=== PATIENT | female | born 1940 | race Caucasian/White ===

== ENCOUNTER 2016-10-19 14:08 | Emergency (ER) | payer OTHER, MEDICARE, BC ==
[~2016-10-19] VITALS: Ht 152.4 cm; Wt 62.0 kg
[~2016-10-19 14:08] MED LIST: ATOR40TA49 PO; CITA20TA4 PO; METO50TA PO; OMEP20TA39 PO; TRAZ50TA4 PO
[2016-10-19 14:20] VITALS: BP 74/46; PULSE 68; RESP 16; TEMP 97.4; O2SAT 95
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
[2016-10-19] MEDS ORDERED: ASPI-110 PO (15:05)
[2016-10-19] MEDS ORDERED: OMEP20TA PO (15:05)
[2016-10-19] MEDS ORDERED: ZOLO50TA PO (15:05)
[2016-10-19] MEDS ORDERED: ATOR20TA15 PO (15:05)
[2016-10-19] MEDS ORDERED: METO50TA PO (15:05)
[2016-10-19 15:15] VITALS: BP_SYST 129; BP_SYST 84; BP_DIAS 59; BP_DIAS 64; PULSE 59; RESP 18; O2SAT 98
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
== END 2016-10-19 16:43 | disposition home or self-care (01) ==
LOC: PHED 14:08
DX: S00.33XA Contusion of nose, initial encounter (principal); S51.811A Laceration without foreign body of right forearm, initial encounter; I10 Essential (primary) hypertension; V43.52XA Car driver injured in collision with other type car in traffic accident, initial encounter; Y93.89 Activity, other specified; Y92.89 Other specified places as the place of occurrence of the external cause; Y99.8 Other external cause status
CPT/HCPCS: 70450; 72125

== ENCOUNTER → 2017-02-12 | Outpatient (CLI) | payer MEDICARE, BC ==
[~2017-02-12] MED LIST changes: +ASPI-110 PO; +ATOR20TA15 PO; -ATOR40TA49 PO; -CITA20TA4 PO; +OMEP20TA PO; -OMEP20TA39 PO; -TRAZ50TA4 PO; +ZOLO50TA PO
[2017-02-12 13:05] LABS: AUTOMATED NEUTROPHIL # 2.7 TH/MM3 (1.8-7.7); BASOPHIL % 0.9 % (0.0-2.0); EOSINOPHIL # 0.3 TH/MM3 (0-0.4); EOSINOPHIL % 5.9 % (0.0-4.0); HEMATOCRIT 39.6 % (35.0-46.0); HEMO FLAGS DIFF FINAL; LYMPH % 29.7 % (9.0-44.0); LYMPHOCYTE # 1.5 TH/MM3 (1.0-4.8); MEAN CELL VOLUME 93.2 FL (80.0-100.0); MEAN CORPUSCULAR HEMOGLOBIN 30.8 PG (27.0-34.0); MEAN CORPUSCULAR HGB CONC 33.1 % (32.0-36.0); MONO % 9.6 % (0.0-8.0); NEUT % 53.9 % (16.0-70.0); PLATELET COUNT 256 TH/MM3 (150-450); RED BLOOD COUNT 4.25 MIL/MM3 (4.00-5.30); RED CELL DISTRIBUTION WIDTH 14.3 % (11.6-17.2)
[2017-02-12 13:20] LABS: ANION GAP 4 MEQ/L (5-15); BICARBONATE 31.4 MEQ/L (21.0-32.0); BLOOD UREA NITROGEN 13 MG/DL (7-18); CHLORIDE 107 MEQ/L (98-107); GLOMERULAR FILTRATION RATE 65 ML/MIN (>89); GLUCOSE,FASTING 93 MG/DL (74-99); POTASSIUM 5.1 MEQ/L (3.5-5.1); SODIUM (NA) 142 MEQ/L (136-145)
[2017-02-12 13:31] LABS: ALKALINE PHOSPHATASE 68 U/L (45-117); ALT (GPT) 24 U/L (10-53); AST (GOT) 19 U/L (15-37); HDL CHOLESTEROL 91.2 MG/DL (40.0-60.0); LDL CHOLESTEROL 75 MG/DL (0-99); TOTAL BILIRUBIN ADULT 0.8 MG/DL (0.2-1.0)
== END ==
LOC: PLAB 09:47
PROVIDERS: ATTEND Family Medicine
DX: E78.2 Mixed hyperlipidemia (principal); I10 Essential (primary) hypertension; K21.9 Gastro-esophageal reflux disease without esophagitis; I73.9 Peripheral vascular disease, unspecified
CPT/HCPCS: 36415; 80053; 80061; 85025

== ENCOUNTER → 2017-05-19 | Outpatient (CLI) | payer MEDICARE, BC ==
[~2017-05-19] MED LIST changes: -ASPI-110 PO; +ASPI1TAB57 PO; -OMEP20TA PO; +OMEP20TA93 PO; +PERC5TAB12 PO; +TRAZ50TA12 PO
[2017-05-19 12:36] LABS: AUTOMATED NEUTROPHIL # 2.7 TH/MM3 (1.8-7.7); BASOPHIL % 0.7 % (0.0-2.0); EOSINOPHIL # 0.2 TH/MM3 (0-0.4); EOSINOPHIL % 4.3 % (0.0-4.0); HEMATOCRIT 38.1 % (35.0-46.0); HEMO FLAGS DIFF FINAL; LYMPH % 27.3 % (9.0-44.0); LYMPHOCYTE # 1.3 TH/MM3 (1.0-4.8); MEAN CORPUSCULAR HEMOGLOBIN 31.4 PG (27.0-34.0); MEAN CORPUSCULAR HGB CONC 33.7 % (32.0-36.0); MONO % 11.4 % (0.0-8.0); NEUT % 56.3 % (16.0-70.0); PLATELET COUNT 246 TH/MM3 (150-450); RED CELL DISTRIBUTION WIDTH 13.8 % (11.6-17.2); WHITE BLOOD COUNT 4.9 TH/MM3 (4.0-11.0)
[2017-05-19 12:47] LABS: PROTHROMBIN TIME - PATIENT 9.8 SEC (9.8-11.6)
[2017-05-19 12:49] LABS: BLOOD, URINE NEG (NEG); GLUCOSE,URINE NEG (NEG); KETONE, URINE NEG (NEG); MUCUS URINE FEW /lpf (OCC); NITRITE,URINE NEG (NEG); URINE COLOR LIGHT-YELLOW (YELLW/STRAW)
[2017-05-19 12:55] LABS: COMMENT (UR) CULTURE INDICATED; CULTURE IF INDICATED CULTURE INDICATED
[2017-05-19 13:02] LABS: ALT (GPT) 24 U/L (10-53); ANION GAP 4 MEQ/L (5-15); AST (GOT) 19 U/L (15-37); BICARBONATE 31.5 MEQ/L (21.0-32.0); BLOOD UREA NITROGEN 10 MG/DL (7-18); CHLORIDE 104 MEQ/L (98-107); GLOMERULAR FILTRATION RATE 78 ML/MIN (>89); GLUCOSE,FASTING 81 MG/DL (74-99); SODIUM (NA) 139 MEQ/L (136-145)
[2017-05-19 13:05] LABS: ALKALINE PHOSPHATASE 70 U/L (45-117); TOTAL BILIRUBIN ADULT 0.8 MG/DL (0.2-1.0)
--- NOTE | 2017-05-19 13:52 | RADRPT ---
EXAM DATE/TIME: 05/19/2017 12:57 [facility] COMPARISON: No previous studies available for comparison. INDICATIONS : Evaluate for pneumonia, pneumothorax, or comminicable disease. Pre op for common carotid bypass/ inte rnal carotid bypass on 05/21/2017. MEDICAL HISTORY : Hypertension. SURGICAL HISTORY : None. ENCOUNTER: Initial ACUITY: 1 day PAIN SCORE: 0/10 LOCATION: Bilateral chest FINDINGS: PA and lateral views of the chest demonstrate a normal-sized cardiac silhouette with calcification of the aorta. There is no effusion, consolidation, or pneumothorax. The bones and soft tissues demonstr ate no acute abnormality. CONCLUSION: No acute cardiopulmonary abnormality is identified. Ramez Marte MD on May 19, 2017 at 13:49 Board Certified Radiologist. This report was verified electronically.
--- NOTE | 2017-05-20 14:44 | EKG ---
Date Performed: 05/19/2017 Time Performed: 12:12:42 PTAGE: 77 years EKG: Sinus rhythm NORMAL ECG NO PREVIOUS TRACING DOCTOR: Veronica Melo Interpretating Date/Time 05/20/2017 14:40:33
== END ==
LOC: CPRE 11:44
PROVIDERS: ATTEND Surgery
DX: Z01.810 Encounter for preprocedural cardiovascular examination (principal); Z01.811 Encounter for preprocedural respiratory examination; Z01.812 Encounter for preprocedural laboratory examination; I71.9 Aortic aneurysm of unspecified site, without rupture; R82.99 Other abnormal findings in urine; B96.1 Klebsiella pneumoniae [K. pneumoniae] as the cause of diseases classified elsewhere
CPT/HCPCS: 36415; 71020; 80053; 81001; 85025; 85610; 86850; 86900; 86901; 87077; 87086; 87186; 93005

== ENCOUNTER 2017-05-21 05:41 | Inpatient (IN) | payer MEDICARE, BC ==
[~2017-05-21] VITALS: Ht 152.4 cm; Wt 68.0 kg
[~2017-05-21 05:41] MED LIST changes: -PERC5TAB12 PO
[2017-05-21] MEDS ORDERED: CHLORHEXIDINE GLUCONATE 2 % 1 PACK (2 CLOTHS) TOPICAL PRN (06:15)
[2017-05-21] MEDS ORDERED: LACTATED RINGER'S 1000 ML IV PRN (06:15)
[2017-05-21] MEDS ORDERED: POVIDONE IODINE 5% (ANTISEPSIS KIT) 4 APPLICATIONS EACH NARE PRN (06:15)
[2017-05-21] MEDS ORDERED: SODIUM CHLORID 0.9% 500 ML IV PRN (06:15)
[2017-05-21] MEDS ORDERED: METOPROLOL TARTRATE 25 MG TAB PO PRN (06:15)
[2017-05-21] MEDS ORDERED: ACETAMINOPHEN 1000 MG/100 ML 100 ML IV ONE (07:09)
[2017-05-21] MEDS ORDERED: NITROGLYCERIN INJ 5 ML ONE (07:10)
[2017-05-21] MEDS ORDERED: BUPIVACAINE HCL PF 0.5% 30 ML VIAL ONE (07:29)
[2017-05-21] MEDS ORDERED: HEPARIN SODIUM - IV 10,000 UNITS/10 ML VIAL ONE (07:29)
[2017-05-21] MEDS ORDERED: THROMBIN (TOPICAL) 20,000 UNIT SPRAY KIT ONE (07:29)
[2017-05-21] MEDS ORDERED: PROTAMINE SULFATE 50 MG/5 ML VIAL ONE (07:29)
[2017-05-21] MEDS ORDERED: HEPARIN-NS/PF INJ 500 ML ONE (07:29)
[2017-05-21] MEDS ORDERED: VANCOMYCIN HCL 1000 MG VIAL ONE (07:30)
--- NOTE | 2017-05-21 08:36 | PD.VS.PN ---
Pre-operative Note Pre-operative diagnosis: R carotid stenosis after CEA Planned procedure: R carotid bypass Interval History: PT is appropriately anxious but no other changes in health that would preclude OR Labs: Hct 38 plt 246 INR 1.0 cr 0.7 Blood: T&S EKG: NSR no ST changes Imaging: CXR negative CTA (04/15) reviewed Orders: NPO Vanc 1g IV OCTOR (PCN Allergy) Post-operative destination: [facility] Operative site marked: Yes Consent: Informed consent has been obtained from Natasha Moore. I have explained the procedure in detail and discussed the risks, benefits, and potential complications. All questions have been answered. Patient contact information: daughter [phone] Hong Vásquez MD May 21, 2017 08:35
[2017-05-21] MEDS ORDERED: SODIUM CHLOR 0.9% 250 ML INJ 250 ML IV ONE (10:15)
--- NOTE | 2017-05-21 11:21 | HHI.PR ---
cc: Shameka Goldman MD Immediate Post Op Note Procedure Date: May 21, 2017 Pre Op Diagnosis: RIGHT carotid stenosis after CEA Post Op Diagnosis: RIGHT carotid stenosis after CEA Surgeon: Hong Vásquez Blood Typer(s): Chanda Whyte Procedure: R CCA-ICA bypass Findings: distal CCA high grade stenosis replaced with 8mm PTFE Good Doppler signals ICA and ECA Additional Information: awoke neuro intact Complications: none Specimen(s) removed: none for pathology Estimated blood loss: 50mL Anesthesia: General Drains: None Fluids: 1300mL IVF Urinary Output (mLs): 100 Patient to: [facility] Patient Condition: Good Implant/Devices: SEE IMPLANT LOG (if applicable) Date/Time of Procedure: SEE SURGICAL CARE RECORD Hong Vásquez MD May 21, 2017 11:21
[2017-05-21] MEDS ORDERED: LACTULOSE SYRUP 20 GM/30 ML CUP PO PRN (11:30)
[2017-05-21] MEDS ORDERED: BISACODYL 10 MG SUPP RECTAL PRN (11:30)
[2017-05-21] MEDS ORDERED: SENNOSIDES 8.6 MG TAB PO PRN (11:30)
[2017-05-21] MEDS ORDERED: HYDROmorphone HCL 2 MG TAB PO PRN (11:30)
[2017-05-21] MEDS ORDERED: MAGNESIUM HYDROXIDE SUSP 30 ML CUP PO PRN (11:30)
[2017-05-21 11:51] VITALS: O2SAT 97
[2017-05-21] MEDS: hydrALAZINE HCL 20 MG/ML VIAL IV PUSH PRN ×2 (11:58→17:36)
[2017-05-21 12:00] VITALS: PULSE 73
[2017-05-21] MEDS: MORPHINE SULFATE 4 MG/ML INJ IV PUSH PRN ×2 (12:39→13:31)
[2017-05-21] MEDS ORDERED: PILL SPLITTER OTHER PRN (13:30)
[2017-05-21 15:00] VITALS: PULSE 90
--- NOTE | 2017-05-21 17:41 | PD.CONS ---
HPI Service Critical Care Medicine Consult Requested By Dr. Vásquez Reason for Consult S/P Right CEA Primary Care Physician Shameka Goldman MD History of Present Illness This is a 89-year-old female is found to have 90% occlusion right carotid artery and is S/P right CEA. Review of Systems ROS 12 point of systems negative with the exception of HPI Past Family Social History Allergies: Coded Allergies: Sulfa (Sulfonamide Antibiotics) (Verified Allergy, Severe, HIVES, 05/21/17) penicillin G (Verified Allergy, Severe, HIVES, 05/21/17) Active Ordered Medications see MAR Family History Unable to obtain patient finding of significant postoperative pain Social History Unable to obtain patient complaining of significant pain Physical Exam Vital Signs Vital Signs Date Time Temp Pulse Resp B/P (MAP) Pulse Ox O2 Delivery O2 Flow Rate FiO2 05/21/17 15:00 90 05/21/17 12:00 73 05/21/17 11:51 97 Nasal Cannula 4.00 05/21/17 08:28 97.9 72 20 112/72 (85) 95 Physical Exam GENERAL: This is a 77-year-old well-developed well-nourished female in moderate amount of distress secondary to complaints postoperative pain SKIN: Warm and dry. HEAD: Atraumatic. Normocephalic. EYES: Pupils equal and round. No scleral icterus. No injection or drainage. ENT: No nasal bleeding or discharge. Mucous membranes pink and moist. NECK: Trachea midline. No JVD. Right incision with dermabond C/D/I CARDIOVASCULAR: Normal rate, regular rhythm. RESPIRATORY: No accessory muscle use. Clear to auscultation. Breath sounds equal bilaterally. On nasal cannula 2 LPM GASTROINTESTINAL: Abdomen soft, non-tender, nondistended. No guarding. MUSCULOSKELETAL: Extremities without clubbing, cyanosis, or edema. No obvious deformities. NEUROLOGICAL: Awake and alert. RASS 0. No gross focal/sensory deficits. Follows commands in all 4 extremities. Septic Shock Reassessment Heart: Regular rate and rhythm Lungs: Clear Skin: Warm Peripheral Pulses: Bounding Right Radial Bounding Left Radial Bounding Left Popliteal Bounding Right Dorsalis Pedis Capillary Refill: Brisk Assessment and Plan Assessment and Plan This is a 77-year-old elderly female, status post right CEA. Assessment S/P Right CEA POD #0 Plan Plan by systems: Neurologic: Neurochecks per ICU protocol Add multimodal analgesia Ofirmev 1 g every 6 hours 24 hours Continue morphine, for breakthrough pain Respiratory: Incentive spirometry every 4 hours while awake Wean FiO2 . Patient currently on 2 L nasal cannula Duo nebs every 4 hours when necessary for wheezing Cardiovascular: Maintain MAP greater than 65 mmHg Telemetry normal sinus metoprolol ,atorvastatin, aspirin Renal: -- Strict I/Os FEN/GI: Heart healthy diet Bowel regimen Heme/ID: Monitor CBC Endocrine: Post monitoring per ICU protocol -- SSI Prophylaxis: GI Prophylaxis Famotidine DVT Prophylaxis -- SCDs Lovenox to begin 05/22 Lines: Right radial A-line, peripheral IVs 2 Dispo: Level 2 Code Status Full Discussed Condition With Dr. Vásquez and DEWATERING FILTERING SUPERVISOR at bedside Lori Perales MD May 21, 2017 17:40
[2017-05-21] MEDS: ACETAMINOPHEN 1000 MG/100 ML 100 ML IV SCH ×2 (18:23→23:51)
[2017-05-21 19:00] VITALS: BP 113/45; PULSE 89; RESP 18; TEMP 97.9; O2SAT 97
[2017-05-21] MEDS: DOCUSATE SODIUM 50 MG/SENNA 8.6 MG TAB PO SCH (20:53)
[2017-05-21] MEDS: FAMOTIDINE 20 MG TAB PO SCH (20:54)
[2017-05-21] MEDS ORDERED: traZODone HCL 50 MG TAB PO SCH (21:00)
[2017-05-21] MEDS ORDERED: ATORVASTATIN 40 MG TAB PO SCH (21:00)
[2017-05-21 21:53] VITALS: O2SAT 97
[2017-05-21 23:00] VITALS: BP_SYST 117; BP_SYST 121; BP_DIAS 41; BP_DIAS 67; PULSE 62; PULSE 68; RESP 16; TEMP 98.1; O2SAT 97
[2017-05-22 03:00] VITALS: BP 103/50; PULSE 62; PULSE 63; RESP 16; TEMP 98.3; O2SAT 98
[2017-05-22 04:07] LABS: HEMATOCRIT 32.7 % (35.0-46.0); MEAN CELL VOLUME 93.2 FL (80.0-100.0); MEAN CORPUSCULAR HEMOGLOBIN 31.1 PG (27.0-34.0); MEAN CORPUSCULAR HGB CONC 33.3 % (32.0-36.0); PLATELET COUNT 220 TH/MM3 (150-450); RED BLOOD COUNT 3.51 MIL/MM3 (4.00-5.30); RED CELL DISTRIBUTION WIDTH 13.8 % (11.6-17.2); REVIEW FLAG FINAL; WHITE BLOOD COUNT 7.7 TH/MM3 (4.0-11.0)
[2017-05-22 04:49] LABS: BICARBONATE 27.1 MEQ/L (21.0-32.0); POTASSIUM 4.3 MEQ/L (3.5-5.1)
[2017-05-22] MEDS: ACETAMINOPHEN 1000 MG/100 ML 100 ML IV SCH (05:40)
--- NOTE | 2017-05-22 06:27 | PD.VS.PN ---
Subjective POD #: 1 Procedure(s): R CCA-ICA bypass Subjective/Hospital Course neuro intact, NARANJO; looks great; does c/o sore neck Objective Vitals/I&O Date Time Temp Pulse Resp B/P (MAP) Pulse Ox O2 Delivery O2 Flow Rate FiO2 05/22/17 03:00 98.3 62 16 103/50 (67) 98 05/22/17 03:00 96 Nasal Cannula 2.00 05/22/17 03:00 63 05/22/17 01:01 16 05/21/17 23:00 05/21/17 23:00 97 Nasal Cannula 2.00 05/21/17 23:00 62 05/21/17 23:00 98.1 68 16 121/67 (85) 97 117/41 (66) 05/21/17 21:53 97 Nasal Cannula 2.00 05/21/17 19:00 95 Nasal Cannula 2.00 05/21/17 19:00 89 05/21/17 19:00 97.9 89 18 113/45 (67) 97 05/21/17 15:00 90 05/21/17 12:00 73 05/21/17 11:51 97 Nasal Cannula 4.00 05/21/17 08:28 97.9 72 20 112/72 (85) 95 05/22/17 05/22/17 05/22/17 07:00 15:00 23:00 Intake Total 1160 ml Output Total 1850 ml Balance -690 ml Exam: Neuro mild ecchymosis R neck CN intact Incisions: intact Laboratory Laboratory Tests Test 05/22/17 03:30 White Blood Count 7.7 Red Blood Count 3.51 Hemoglobin 10.9 Hematocrit 32.7 Mean Corpuscular Volume 93.2 Mean Corpuscular Hemoglobin 31.1 Mean Corpuscular Hemoglobin Concent 33.3 Red Cell Distribution Width 13.8 Platelet Count 220 Mean Platelet Volume 7.2 Blood Urea Nitrogen 10 Creatinine 0.62 Random Glucose 138 Calcium Level 8.0 Sodium Level 134 Potassium Level 4.3 Chloride Level 101 Carbon Dioxide Level 27.1 Anion Gap 6 Estimat Glomerular Filtration Rate 93 Assessment and Plan Plan POD#1 s/p R carotid replacement Looks great; neuro intact 1. D/C A-line 2. Normalize and d/c home this morning if alexy po and ambulates well Discharge Planning today Hong Vásquez MD May 22, 2017 06:27
--- NOTE | 2017-05-22 06:34 | MP ---
cc: HONG VÁSQUEZ MD DATE OF SURGERY 05/21/2017 PREOPERATIVE DIAGNOSIS Carotid artery stenosis after a carotid endarterectomy. POSTOPERATIVE DIAGNOSIS Carotid artery stenosis after a carotid endarterectomy. PROCEDURE Common carotid-internal carotid artery bypass with 8-mm PTFE. ATTENDING SURGEON Hong Vásquez MD DEBT RECOVERY OFFICER SURGEON Chanda Whyte ANESTHESIA General. INDICATIONS Mrs. Moore is a 77-year-old lady who 7 years ago had a right carotid endarterectomy. She had a CT scan done for other reasons and presented with a high-grade stenosis of her carotid artery repair. She is asymptomatic. After a long discussion was had with the patient and her daughter she was offered a carotid replacement. A thorough discussion was had about the risks and benefits. DESCRIPTION OF PROCEDURE Informed consent was obtained from the patient. She was taken to the operating room and placed supine on the operating room table and appropriate time-out was taken to insure the patient's identity, operative site and the planned procedure. The administration of 1 gram of vancomycin was initiated prior to the skin incision and will be discontinued after a single preoperative dose. Vancomycin was chosen because of the patient's PENICILLIN ALLERGY. Everyone in the room agreed with the time-out and we proceeded. Her right neck was prepped and draped. An incision was made over the previous incision in the right neck just anterior to the border of the sternocleidomastoid. This was carried down through the subcutaneous tissue and sternocleidomastoid was mobilized. The common carotid artery was dissected free and encircled with a vessel loop. We then dissected up to the carotid bulb, noticing the previous patch. The jugular vein was densely adherent to the carotid artery and a venotomy was repaired with 6-0 Prolene suture. We then dissected out the superior thyroid, external carotid and internal carotid artery and all were encircled with a vessel loop. At this point the patient systemically heparinized and the ACT was confirmed to be greater than 250. Distal then proximal control of the internal and common carotid arteries were obtained with profunda clamps and a longitudinal arteriotomy was made with an 11 blade, extended with Perth scissors. The area of high-grade stenosis was identified and then the carotid was resected from the common carotid artery to the distal aspect of the bulb. It was spatulated proximally and distally. An 8-mm PTFE was then brought up on the field, spatulated and sewn on proximally and distally in end-to-end fashion with running 5-0 Prolene suture. The distal anastomosis incorporated both the internal and external carotid arteries. At the completion the anastomoses were all flushed and then the clamps were released sequentially. There was a nice Doppler signal in both the external and internal carotid arteries and the patch was made hemostatic. The heparin was reversed with protamine and the wound was closed with 2-0 Polysorb, 3-0 Polysorb and 4-0 Monocryl. The sponge and needle counts were correct at the end of the case. I was present, scrubbed and performed the entire procedure. Hong Vásquez MD RJF/SSB /5:42 PM /6:12 AM
[2017-05-22 07:00] VITALS: BP_SYST 104; BP_SYST 129; BP_DIAS 39; BP_DIAS 65; PULSE 64; PULSE 70; RESP 14; TEMP 98.6; O2SAT 96
--- NOTE | 2017-05-22 08:13 | HHI.CCPN ---
Subjective Remarks/Hospital Course This is a 89-year-old female is found to have 90% occlusion right carotid artery and is S/P right CEA. Subjective: 05/22: Afebrile. No acute events overnight. She immobilized in the ICU room ambulating without difficulty. Pain well controlled. Patient tolerating diet. Encouraged to utilize incentive spirometry. Objective Vital Signs Date Time Temp Pulse Resp B/P (MAP) Pulse Ox O2 Delivery O2 Flow Rate FiO2 05/22/17 07:00 96 Nasal Cannula 2.00 05/22/17 07:00 98.6 64 14 129/65 (86) 104/39 (60) Intake and Output 05/22/17 05/22/17 05/23/17 08:00 16:00 00:00 Intake Total 1160 ml Output Total 1850 ml Balance -690 ml Result Diagram: 05/22/1732905/22/17329 Objective Remarks GENERAL: This is a 77-year-old well-developed well-nourished female sitting in chair in no acute distress, pleasantly conversant SKIN: Warm and dry. HEAD: Atraumatic. Normocephalic. EYES: Pupils equal and round. No scleral icterus. No injection or drainage. ENT: No nasal bleeding or discharge. Mucous membranes pink and moist. NECK: Trachea midline. No JVD. Right incision with dermabond C/D/I CARDIOVASCULAR: Normal rate, regular rhythm. RESPIRATORY: No accessory muscle use. Clear to auscultation. Breath sounds equal bilaterally. GASTROINTESTINAL: Abdomen soft, non-tender, nondistended. No guarding. MUSCULOSKELETAL: Extremities without clubbing, cyanosis, or edema. No obvious deformities. NEUROLOGICAL: Awake and alert. RASS 0. No gross focal/sensory deficits. Follows commands in all 4 extremities. Urinary Catheter: No A/P Assessment and Plan This is a 77-year-old elderly female, status post right CEA. Assessment S/P Right CEA POD #1 Post operative pain-well controlled Plan Plan by systems: Neurologic: Neurochecks per ICU protocol Continue morphine, for breakthrough pain Respiratory: Incentive spirometry every 4 hours while awake Wean FiO2 off Duo nebs every 4 hours when necessary for wheezing Cardiovascular: Maintain MAP greater than 65 mmHg Telemetry normal sinus metoprolol ,atorvastatin, aspirin Renal: -- Strict I/Os FEN/GI: Heart healthy diet Bowel regimen Heme/ID: Monitor CBC Endocrine: Post monitoring per ICU protocol -- SSI Prophylaxis: GI Prophylaxis Famotidine DVT Prophylaxis -- SCDs Lovenox to begin 05/22 Lines: Right radial A-line, peripheral IVs 2 Dispo: Level 2. Thank you for line participation in the care of this patient. Critical care medicine will sign off. Physician Lori Bustamante MD May 22, 2017 08:13
[2017-05-22 08:17] VITALS: O2SAT 98
[2017-05-22] MEDS ORDERED: PERC5TAB12 PO (08:48)
[2017-05-22] MEDS: FAMOTIDINE 20 MG TAB PO SCH (08:54)
[2017-05-22] MEDS: DOCUSATE SODIUM 50 MG/SENNA 8.6 MG TAB PO SCH (08:57)
[2017-05-22] MEDS ORDERED: SERTRALINE HCL 50 MG TAB PO SCH (09:00)
[2017-05-22] MEDS ORDERED: METOPROLOL TARTRATE 50 MG TAB PO SCH (09:00)
[2017-05-22] MEDS ORDERED: ASPIRIN EC 81 MG TABEC PO SCH (09:00)
--- NOTE | 2017-05-22 09:02 | PD.VS.DC ---
Discharge Summary Admission Date: May 21, 2017 at 05:41 Discharge Date: May 22, 2017 Admission Diagnosis: (1) Carotid artery disease without cerebral infarction Discharge Diagnosis: (1) bypass common carotid artery Brief History from admission Ms. Moore is a 77/F with a PMH of R carotid stenosis after CEA Asymptomatic w/o neurological deficits Procedure(s): R CCA-ICA bypass Significant Findings GENERAL: Afebrile, A&OX3,GCS15, NAD SKIN: Warm and dry. Incision to Right side of neck intact with surgical glue, no S/D/R NECK: Supple, trachea midline. No JVD or lymphadenopathy. CARDIOVASCULAR: Regular rate and rhythm without murmurs, gallops, or rubs. RESPIRATORY: Breath sounds equal bilaterally. No accessory muscle use. MUSCULOSKELETAL: No cyanosis, or edema. CN 2-12 intact Pt w/ slight right sided facial droop Laboratory Tests Test 05/22/17 03:30 Red Blood Count 3.51 MIL/MM3 (4.00-5.30) Hemoglobin 10.9 GM/DL (11.6-15.3) Hematocrit 32.7 % (35.0-46.0) Random Glucose 138 MG/DL (74-106) Calcium Level 8.0 MG/DL (8.5-10.1) Sodium Level 134 MEQ/L (136-145) Hospital Course: Ms. Moore is a 77/F with a PMH of R carotid stenosis after CEA Asymptomatic w/o neurological deficits Pt S/P R CCA- ICA bypass POD 1 doing well w/ slight right sided facial droop No other deficits noted D/C today Arranged f/u in 1M with a surveillance Carotid Duplex Allergies Coded Allergies Type Severity Reaction Last Updated Verified Sulfa (Sulfonamide Antibiotics) Allergy Severe HIVES 05/21/17 Yes penicillin G Allergy Severe HIVES 05/21/17 Yes 05/20/17 05/20/17 05/21/17 05/21/17 05/22/17 05/22/17 06:00 18:00 06:00 18:00 06:00 18:00 Intake Total 1300 ml 2000 ml Output Total 150 ml 2175 ml Balance 1150 ml -175 ml Intake Oral 1800 ml IV Total 200 ml Other 1300 ml Output Urine Total 100 ml 2175 ml Estimated Blood Loss 50 ml # Bowel Movements 0 Laboratory Tests Test 05/22/17 03:30 White Blood Count 7.7 TH/MM3 Red Blood Count 3.51 MIL/MM3 Hemoglobin 10.9 GM/DL Hematocrit 32.7 % Mean Corpuscular Volume 93.2 FL Mean Corpuscular Hemoglobin 31.1 PG Mean Corpuscular Hemoglobin Concent 33.3 % Red Cell Distribution Width 13.8 % Platelet Count 220 TH/MM3 Mean Platelet Volume 7.2 FL Blood Urea Nitrogen 10 MG/DL Creatinine 0.62 MG/DL Random Glucose 138 MG/DL Calcium Level 8.0 MG/DL Sodium Level 134 MEQ/L Potassium Level 4.3 MEQ/L Chloride Level 101 MEQ/L Carbon Dioxide Level 27.1 MEQ/L Anion Gap 6 MEQ/L Estimat Glomerular Filtration Rate 93 ML/MIN Orders Procedure Category Date Status Time Lactated Ringer's MED 05/21/17 In Process 1000 Ml Inj (Lr 1000 M 06:15 Sodium Chlorid 0.9% MED 05/21/17 In Process 500 Ml Inj (Ns 500 M 06:15 Metoprolol Tartrate MED 05/21/17 In Process (Lopressor) 06:15 Povidone Iod 5% MED 05/21/17 In Process Antisepsis Kit 06:15 Chlorhexidine 2% MED 05/21/17 In Process Cloth (Chlorhexidine 06:15 Acetaminophen 1000 MED 05/21/17 Complete Mg/100 Ml (Ofirmev 10 07:09 Nitroglycerin Inj MED 05/21/17 Complete (Nitroglycerin Inj) 07:10 Protamine Sulfate Inj MED 05/21/17 Complete (Protamine Sulfate 07:29 Heparin Inj (Heparin MED 05/21/17 Complete Inj) 07:29 Bupivacaine Pf 0.5% MED 05/21/17 Complete Inj (Marcaine Pf 0.5 07:29 Thrombin Top [place] MED 05/21/17 Complete (Thrombin Top [place]) 07:29 Heparin-Ns/Pf Inj MED 05/21/17 Complete (Heparin-Ns/Pf Inj) 07:29 Vancomycin Inj MED 05/21/17 Complete (Vancomycin Inj) 07:30 Sodium Chlor 0.9% 250 MED 05/21/17 Complete Ml Inj (Ns 250 Ml 10:15 Urinary Catheter EVITA 05/21/17 Complete Management 10:52 Am Admit Pre Op Care [facility] 05/21/17 Complete Admit To Inpatient ADMITTING 05/21/17 Transmitted Code Status CODE 05/21/17 Transmitted 11:21 Vital Signs (Adult) EVITA 05/21/17 In Process 11:21 Kitchen And Bath Designer / EVITA 05/21/17 In Process Telemetry 11:21 Activity Oob Ad Steffanie EVITA 05/21/17 In Process 18:00 Notify Parameters EVITA 05/21/17 In Process 11:21 Diet Heart Healthy DIET 05/21/17 Transmitted Lunch Basic Metabolic Panel LAB 05/22/17 Complete (Bmp) 06:00 Cbc No Diff, Includes LAB 05/22/17 Complete Plts 06:00 Consult Booking Officer CONS 05/21/17 Transmitted Famotidine (Pepcid) MED 05/21/17 In Process 21:00 Oxycodone (Roxicodone) MED 05/21/17 In Process 11:30 Hydromorphone MED 05/21/17 In Process (Dilaudid) 11:30 Scd Bilateral/Knee EVITA 05/21/17 In Process High 11:21 Docusate Sodium-Senna MED 05/21/17 In Process ([place]arlett-Colace) 21:00 Magnesium Hydroxide MED 05/21/17 In Process Liq (Milk Of Magnesi 11:30 Sennosides (Senokot) MED 05/21/17 In Process 11:30 Bisacodyl Supp MED 05/21/17 In Process (Dulcolax Supp) 11:30 Lactulose Liq MED 05/21/17 In Process (Lactulose Liq) 11:30 Inpatient ADMITTING 05/21/17 Transmitted Certification ^ Other Nursing Orders EVITA 05/21/17 In Process 11:21 Remove Urinary EVITA 05/21/17 In Process Catheter 17:00 ^ Other Nursing Orders EVITA 05/21/17 In Process 11:21 Aspirin Ec (Ecotrin MED 05/22/17 In Process Ec) 09:00 Metoprolol Tartrate MED 05/22/17 In Process (Lopressor) 09:00 Sertraline (Zoloft) MED 05/22/17 In Process 09:00 Trazodone (Desyrel) MED 05/21/17 In Process 21:00 Atorvastatin (Lipitor) MED 05/21/17 In Process 21:00 (Hub Use Only)Inp Phy CONS 05/21/17 Transmitted Cons/Ref Enoxaparin Inj MED 05/22/17 In Process (Lovenox Inj) 10:00 Hydralazine Inj MED 05/21/17 In Process (Apresoline Inj) 11:45 Morphine Inj MED 05/21/17 In Process (Morphine Inj) 12:30 Pill Splitter (Pill MED 05/21/17 In Process Splitter) 13:30 Acetaminophen 1000 MED 05/21/17 In Process Mg/100 Ml (Ofirmev 10 18:00 ^ Other Nursing Orders EVITA 05/22/17 In Process 06:24 Consult Pt Eval & PT 05/22/17 Logged Treat 07:56 Resp Incentive RSP 05/22/17 Logged Spirometry Attending Discharge DISCHARGE 05/22/17 Transmitted Order Vital Signs Date Time Temp Pulse Resp B/P (MAP) Pulse Ox O2 Delivery O2 Flow Rate FiO2 05/22/17 08:17 98 Nasal Cannula 2.00 05/22/17 07:00 96 Nasal Cannula 2.00 05/22/17 07:00 98.6 64 14 129/65 (86) 96 104/39 (60) 05/22/17 03:00 98.3 62 16 103/50 (67) 98 05/22/17 03:00 96 Nasal Cannula 2.00 05/22/17 03:00 63 05/22/17 01:01 16 05/21/17 23:00 05/21/17 23:00 97 Nasal Cannula 2.00 05/21/17 23:00 62 05/21/17 23:00 98.1 68 16 121/67 (85) 97 117/41 (66) 05/21/17 21:53 97 Nasal Cannula 2.00 05/21/17 19:00 95 Nasal Cannula 2.00 05/21/17 19:00 89 05/21/17 19:00 97.9 89 18 113/45 (67) 97 05/21/17 15:00 90 05/21/17 12:00 73 05/21/17 11:51 97 Nasal Cannula 4.00 05/21/17 08:28 97.9 72 20 112/72 (85) 95 Discharge Condition: Good Discharge Disposition: Discharge Home Discharge Instructions: NO driving for 10 days You have been prescribed a narcotic pain medication, take with an over the counter stool softener as if may cause constipation No tub baths or swimming until incision is fully healed Do not apply any creams or ointments to your incision site as if may loosen the surgical glue May Shower tomorrow am Activities as tolerated F/U in our out patient clinic in with a surveillance Carotid Duplex study Call the office to report any increased redness, drainage or swelling (right sided neck incision) Kiana GONSALEZ [facility] [phone] Any questions or concerns: Call [facility] [phone] Kiana Corrales May 22, 2017 09:02
[2017-05-22] MEDS ORDERED: ENOXAPARIN SODIUM 30 MG/0.3 ML SYRINGE SQ SCH (10:00)
== END 2017-05-22 09:37 | disposition home or self-care (01) | DRG 39 ==
LOC: HSDI 05:41 → HCVI 11:30
PROVIDERS: ADMIT Surgery; ATTEND Surgery
PROC: 031 Upper Arteries, Bypass (ICD-10-PCS; principal; 2017-05-21 08:49)
DX: I65.21 Occlusion and stenosis of right carotid artery (principal); Z88.0 Allergy status to penicillin
CPT/HCPCS: 80048; 85027; 94150; J0131; J0360; J1644; J1650; J2270; J2720; J3370; J7050; J7120

== ENCOUNTER → 2017-09-15 | Outpatient (CLI) | payer MEDICARE, BC ==
[~2017-09-15] MED LIST changes: +PERC5TAB12 PO
[2017-09-15 13:03] LABS: AUTOMATED NEUTROPHIL # 2.5 TH/MM3 (1.8-7.7); BASOPHIL % 0.9 % (0.0-2.0); EOSINOPHIL # 0.2 TH/MM3 (0-0.4); EOSINOPHIL % 4.8 % (0.0-4.0); HEMATOCRIT 37.8 % (35.0-46.0); HEMOGLOBIN 12.8 GM/DL (11.6-15.3); LYMPH % 32.7 % (9.0-44.0); LYMPHOCYTE # 1.6 TH/MM3 (1.0-4.8); MEAN CELL VOLUME 91.4 FL (80.0-100.0); MEAN CORPUSCULAR HEMOGLOBIN 30.8 PG (27.0-34.0); MEAN CORPUSCULAR HGB CONC 33.7 % (32.0-36.0); MEAN PLATELET VOLUME 7.8 FL (7.0-11.0); MONO % 10.7 % (0.0-8.0); MONOCYTE # 0.5 TH/MM3 (0-0.9); NEUT % 50.9 % (16.0-70.0); PLATELET COUNT 273 TH/MM3 (150-450); RED BLOOD COUNT 4.14 MIL/MM3 (4.00-5.30); RED CELL DISTRIBUTION WIDTH 13.8 % (11.6-17.2)
[2017-09-15 13:19] LABS: ALBUMIN 3.6 GM/DL (3.4-5.0); AST (GOT) 25 U/L (15-37); BICARBONATE 30.8 MEQ/L (21.0-32.0); BLOOD UREA NITROGEN 10 MG/DL (7-18); CALCIUM 8.6 MG/DL (8.5-10.1); CHLORIDE 106 MEQ/L (98-107); CREATININE 0.78 MG/DL (0.50-1.00); GLOMERULAR FILTRATION RATE 71 ML/MIN (>89); GLUCOSE,FASTING 88 MG/DL (74-99); SODIUM (NA) 141 MEQ/L (136-145)
[2017-09-15 13:20] LABS: CHOLESTEROL 171 MG/DL (120-200)
[2017-09-15 13:24] LABS: ALKALINE PHOSPHATASE 67 U/L (45-117); ALT (GPT) 25 U/L (10-53); CHOLESTEROL/ HDL RATIO 2.09 RATIO; HDL CHOLESTEROL 81.6 MG/DL (40.0-60.0); LDL CHOLESTEROL 80 MG/DL (0-99); TOTAL BILIRUBIN ADULT 0.7 MG/DL (0.2-1.0); TOTAL PROTEIN 7.1 GM/DL (6.4-8.2); TRIGLYCERIDES 46 MG/DL (42-150)
== END ==
LOC: PLAB 08:10
PROVIDERS: ATTEND Family Medicine
DX: E78.2 Mixed hyperlipidemia (principal); I10 Essential (primary) hypertension; K21.9 Gastro-esophageal reflux disease without esophagitis
CPT/HCPCS: 36415; 80053; 80061; 85025